=== PATIENT | male | born 1995 ===

== ENCOUNTER 2016-12-31 20:50 | Emergency (ER) | payer OTHER ==
[~2016-12-31] VITALS: Ht 177.8 cm; Wt 72.9 kg
[2016-12-31 20:53] VITALS: TEMP 36.8; Ht 177.8 cm; Wt 72.9 kg
[2016-12-31] MEDS ORDERED: OXYC1TAB3 PO (21:14)
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
[2016-12-31] MEDS ORDERED: BACITRACIN OINT 15 GM TUBE EXT ONE (21:15)
[2016-12-31] MEDS ORDERED: OXYC-57 PO (21:16)
[2016-12-31] MEDS ORDERED: OXYCODONE IR HOME PACK PO ONE (21:30)
[2016-12-31 21:33] VITALS: BP 158/74; PULSE 72; O2SAT 99
== END 2016-12-31 21:35 | disposition home or self-care (01) ==
LOC: C.EDB 20:52 → C.EDC 21:35
DX: T23.031A Burn of unspecified degree of multiple right fingers (nail), not including thumb, initial encounter (principal); T23.032A Burn of unspecified degree of multiple left fingers (nail), not including thumb, initial encounter; X15.8XXA Contact with other hot household appliances, initial encounter; Z82.49 Family history of ischemic heart disease and other diseases of the circulatory system; Z84.1 Family history of disorders of kidney and ureter